=== PATIENT | female | born 1950 | race Caucasian/White ===

== ENCOUNTER → 2016-11-30 | Outpatient (CLI) | payer MEDICARE, OTHER ==
[~2016-11-30] MED LIST: CALTRATE-600/VI1 TA1 PO; CARAFATE1 G PO; CARDURA8 MG PO; EVISTA60 M1 PO; FLONASE 0.05% N16 G1; HYDROCHLOROTHIA25 MG PO; LIPITOR PO; LOPRESSOR100 MG PO; MULTIVITAMIN1 UDCAP PO; PROTONIX PO; ZESTRIL40 MG PO
--- NOTE | ~2016-11-30 | MY9 ---
[facility] A Service of [facility] RADIOLOGY TEXT RESULTS PATIENT: BALBIR HERNANDEZ LOCATION: [facility] : 46 UNIT #: [id number] AGE: [address]: Shanna Jack MD SEX: F ORDER DR: [id number] [facility] [address] [place], [place] [address] [id number] O MR#: [id number] Acc #: [id number] NAME: BALBIR HERNANDEZ : 1950 SEX: F STUDY DATE/TIME: 11/30/2016 12:52 UNIT: [facility] ROOM: STUDY DESCRIPTION: MY Mammogram Screen Uni Dig Lt Attending Physician: Shanna Jack M.D. Ordering Physician: Shanna Jack M.D. Primary Care Physician: Alexis Swift M.D. MEDICAL IMAGING REPORT This report is preliminary unless electronic signature is present EXAM Left screening mammogram on 11/30. INDICATION History of right mastectomy for breast cancer in 1987. No current complaints. FINDINGS Digital CC and MLO views of the left breast were obtained. Study is reviewed with an FDA-approved CAD device. Comparison made with 02/11/2015, 12/28/2013, 12/26/2012. Breast parenchyma shows scattered fibroglandular densities. No masses or suspicious microcalcifications are seen. Benign calcification is stable. IMPRESSION Benign left mammogram. Followup exam in 1 year recommended. Patients over the age of 40 are entered into a reminder system with target due date for the next mammogram. A result letter will also be sent to the patient. BIRADS: 2 Benign finding. Dictated by... Montana Grullon Jr., M.D. THIS IS AN ELECTRONICALLY VERIFIED REPORT Montana Grullon Jr., M.D. at 11/30/2016 5:00 PM [email or web address] [facility] A Service of [facility] RADIOLOGY TEXT RESULTS PATIENT: BALBIR HERNANDEZ LOCATION: [facility] : 46 UNIT #: [id number] AGE: [address]: Shanna Jack MD SEX: F ORDER DR: TD: 11/30/2016 15:04 JOB #: [id number] MEDICAL IMAGING REPORT COPY
== END | disposition home or self-care (01) ==
LOC: CWCC 12:39
DX: Z12.31 Encounter for screening mammogram for malignant neoplasm of breast (principal); Z85.3 Personal history of malignant neoplasm of breast; Z90.11 Acquired absence of right breast and nipple
CPT/HCPCS: G0202